=== PATIENT | female | born 1955 | race Caucasian/White ===

== ENCOUNTER 2017-06-10 10:17 | Inpatient (IN) | payer MEDICAID ==
[~2017-06-10] VITALS: Ht 152.4 cm; Wt 56.5 kg
[2017-06-10] VITALS (16 sets, daily range): BP systolic 71–113; BP diastolic 32–75
[~2017-06-10 10:17] MED LIST: ESTR1TAB19 PO; HYDR-569 PO; ROPI2TAB29 PO; thiamine inj. 100 MG in normal saline 100ml IV soln 99 ML IV SCH; thiamine inj. 100 MG, magnesium sulf injection 2 GM, MVI, adult No.4 with vit. K 10 ML ... IV SCH
[2017-06-10 11:04] LABS: BASOPHILS % (AUTO) 0 % (0-1); EOSINOPHILS % (AUTO) 0.1 % (0-6); LYMPHOCYTES # (AUTO) 1.6 X10'3 (1.1-4.8); LYMPHOCYTES % (AUTO) 7.7 % (21-51); MEAN CORPUSCULAR HEMOGLOBIN 28.4 PG (27.0-31.0); MEAN CORPUSCULAR VOLUME 91.6 FL (78-98); MEAN PLATELET VOLUME 8.6 FL (7.4-10.4); MONOCYTES # (AUTO) 0.2 X10'3 (0-0.9); MONOCYTES % (AUTO) 0.8 % (2-12); NEUTROPHILS # (AUTO) 18.9 X10'3 (1.8-7.7); NEUTROPHILS % (AUTO) 91.4 % (42-75); PLATELET COUNT 149 X10'3 (140-440); RED BLOOD COUNT 1.92 X10'6 (4.20-5.60); RED CELL DISTRIBUTION WIDTH 19.9 % (11.5-14.5); WHITE BLOOD COUNT 20.6 X10'3 (4.5-11.0)
[2017-06-10 11:09] LABS: HEMATOCRIT 17.6 % (35.0-45.0); HEMOGLOBIN 5.4 g/dl (12.0-16.0); INR 2.3 INR; PARTIAL THROMBOPLASTIN TIME 38 SECONDS (22-32); PROTHROMBIN TIME 23.3 SECONDS (9.0-12.0)
[2017-06-10 11:14] LABS: ALANINE AMINOTRANSFERASE 92 U/L (12-78); ALBUMIN 1.9 G/DL (3.4-5.0); ALKALINE PHOSPHATASE 341 IU/L (46-116); ANION GAP 22 (8-16); ASPARTATE AMINO TRANSFERASE 388 U/L (10-37); BILIRUBIN,TOTAL 4.1 MG/DL (0.1-1.0); BLOOD UREA NITROGEN 18 MG/DL (7-18); BUN/CREATININE RATIO 15.5 (6.6-38.0); CHLORIDE 101 MMOL/L (99-107); CREATININE 1.16 MG/DL (0.40-0.90); GLUCOSE 95 MG/DL (70-104); POTASSIUM 3.8 MMOL/L (3.5-5.1); SODIUM 140 MMOL/L (135-145); TOTAL CARBON DIOXIDE 17.2 MMOL/L (24-32); eGFR 48 ML/MIN
[2017-06-10 11:16] LABS: ALBUMIN/GLOBULIN RATIO 0.5 (1.1-1.5); TOTAL PROTEIN 6.1 G/DL (6.4-8.2)
[2017-06-10] MEDS ORDERED: normal saline 1000ml 1,000 ML IV ONE (11:22)
[2017-06-10] MEDS ORDERED: normal saline 1000ML IV soln IVB ONE (11:25)
[2017-06-10 11:45] LABS: CLARITY,URINE CLEAR (Clear); COLOR,URINE YELLOW (Yellow); GLUCOSE, URINE NEGATIVE (Neg); KETONES,URINE TRACE mg/dl (Neg); LEUKOCYTE ESTERASE ,URINE TRACE (Neg); NITRITES, URINE POSITIVE (Neg); OCCULT BLOOD,URINE NEGATIVE (Neg); PH,URINE 5.5 (4.8-8.0); PROTEIN,URINE TRACE mg/dl (Neg)
[2017-06-10 11:46] LABS: NUCLEATED RED BLOOD CELLS 2 /100WBC (0-0); TOTAL CELLS COUNTED 100
[2017-06-10 11:48] LABS: OCCULT BLOOD STOOL POSITIVE (Neg)
[2017-06-10 11:48] LABS: ANISOCYTOSIS 2+; MICROCYTOSIS 2+; PLATELET ESTIMATE NORMAL
[2017-06-10 11:49] LABS: HYPOCHROMASIA 2+
[2017-06-10 11:51] LABS: UA COLLECTION TYPE STRAIGHT CATH
[2017-06-10 11:56] LABS: BACTERIA,URINE 2+ /HPF (Neg); MUCUS STRANDS NONE SEEN /LPF (Neg); RBC,URINE NONE SEEN /HPF (0-2); SQUAMOUS EPITHELIAL CELL,UR FEW /LPF (FEW)
[2017-06-10 11:57] LABS: WBC CLUMPS,URINE FEW /HPF (NEGATIVE)
[2017-06-10 12:08] LABS: AMYLASE 120 U/L (25-115); LIPASE 88 U/L (73-393); MAGNESIUM 1.4 MG/DL (1.5-2.4)
[2017-06-10] MEDS ORDERED: magnesium hydroxide 30ml (MOM) UD suspension PO PRN (12:25)
[2017-06-10] MEDS ORDERED: sodium phosphate inj. 15 MMOL in dextrose 5%-water 150 ML IV PRN (12:25)
[2017-06-10] MEDS: normal saline 1000ml 1,000 ML IV SCH ×2 (12:25→18:22)
[2017-06-10] MEDS ORDERED: magnesium Cl slow-release 64mg tablet PO PRN (12:25)
[2017-06-10] MEDS ORDERED: potassium Cl 20 mEq SR tablet PO PRN ×2 (12:25)
[2017-06-10] MEDS ORDERED: acetaminophen 325mg tablet PO PRN ×2 (12:25)
[2017-06-10] MEDS ORDERED: magnesium 4gm in 100ml NS 100 ML IV PRN (12:25)
[2017-06-10] MEDS ORDERED: Neutra Phos packet PO PRN (12:25)
[2017-06-10] MEDS ORDERED: magnesium 2GM in 50ml NS 50 ML IV PRN (12:25)
[2017-06-10] MEDS ORDERED: sodium phosphate inj. 30 MMOL in dextrose 5%-water 250 ML IV PRN (12:25)
[2017-06-10] MEDS ORDERED: ondansetron/PF 4mg/2ml inj IV PRN (12:25)
[2017-06-10] MEDS ORDERED: morphine 4 MG/ML inj SYRINge IV ONE (13:45)
[2017-06-10 13:51] LABS: MEAN CORPUSCULAR HEMOGLOBIN 27.9 PG (27.0-31.0); MEAN CORPUSCULAR HGB CONC 30.5 % (33.0-36.5); MEAN CORPUSCULAR VOLUME 91.5 FL (78-98); MEAN PLATELET VOLUME 8.9 FL (7.4-10.4); PLATELET COUNT 97 X10'3 (140-440); RED BLOOD COUNT 1.54 X10'6 (4.20-5.60); RED CELL DISTRIBUTION WIDTH 19.7 % (11.5-14.5); WHITE BLOOD COUNT 12.4 X10'3 (4.5-11.0)
[2017-06-10 13:58] LABS: HEMATOCRIT 14.1 % (35.0-45.0)
[2017-06-10 13:59] LABS: HEMOGLOBIN 4.3 g/dl (12.0-16.0)
[2017-06-10] MEDS ORDERED: iohexol 300mg/ml 100ml inj. ONE (14:19)
[2017-06-10] MEDS ORDERED: furosemide 20 MG/2 ML vial IV ONE ×2 (15:25→21:40)
[2017-06-10] MEDS ORDERED: thiamine 100mg/ml 2ml inj. IM ONE (15:40)
[2017-06-10] MEDS: NORepinephrine 8mg/ 250ml NS 250 ML IV SCH (15:58)
[2017-06-10 16:00] LABS: ABG BASE EXCESS -9.8 mmol/L (-2.0-3.0); ABG HCO3 14.5 mmol/L (22.0-26.0); ABG OXYGEN SATURATION 82.5 % (95-98); ABG PCO2 (T) 22.7 mmHg (32.0-45.0); ABG PH (T) 7.413 (7.350-7.450); ABG PO2 (T) 45.8 mmHg (83-108); ALLEN'S TEST Positive; FCOHb 0.5 % (0.5-1.5); FLOW 6 L/min; FMetHb 0.5 % (0.3-1.12); FO2Hb 81.7 % (94-100); PATIENT TEMPERATURE 34.3; RESPIRATORY RATE (OBSERVED) 22 b/min; TOTAL HEMOGLOBIN 5.5 G/dl (12.0-16.0)
[2017-06-10] MEDS ORDERED: pantoprazole 40MG/NS 100ML BAG 100 ML IV SCH (16:00)
[2017-06-10] MEDS: K, MAG and/or Phos replacement - Verify level? MC SCH (16:00)
[2017-06-10] MEDS: pantoprazole 40MG/NS 100ML BAG 100 ML IV SCH ×2 (16:04→20:09)
[2017-06-10] MEDS ORDERED: fentaNYL/PF 50MCG/1 ML 2ML syringe ONE (16:58)
[2017-06-10] MEDS ORDERED: MIDAZolam 5mg/ml 2ml vial ONE (16:58)
[2017-06-10] MEDS ORDERED: LIDOcaine Viscous 15ml cup ONE (16:58)
[2017-06-10] MEDS: furosemide 20 MG/2 ML vial IV PRN ×2 (17:39→21:20)
[2017-06-10 17:47] LABS: ABG BASE EXCESS -8.4 mmol/L (-2.0-3.0); ABG HCO3 17.7 mmol/L (22.0-26.0); ABG OXYGEN SATURATION 95.5 % (95-98); ABG PCO2 (T) 36.2 mmHg (32.0-45.0); ABG PO2 (T) 81.7 mmHg (83-108); ALLEN'S TEST Positive; FCOHb 0.3 % (0.5-1.5); FLOW 50 L/min; FMetHb 0.3 % (0.3-1.12); FO2Hb 94.9 % (94-100); PATIENT TEMPERATURE 35.4; RESPIRATORY RATE (OBSERVED) 20 b/min; TOTAL HEMOGLOBIN 9.5 G/dl (12.0-16.0)
[2017-06-10 17:53] LABS: HEMOGLOBIN 8.9 g/dl (12.0-16.0); MEAN CORPUSCULAR HEMOGLOBIN 29.4 PG (27.0-31.0); MEAN CORPUSCULAR HGB CONC 32.8 % (33.0-36.5); MEAN CORPUSCULAR VOLUME 89.5 FL (78-98); MEAN PLATELET VOLUME 8.4 FL (7.4-10.4); PLATELET COUNT 131 X10'3 (140-440); RED BLOOD COUNT 3.02 X10'6 (4.20-5.60); RED CELL DISTRIBUTION WIDTH 16.9 % (11.5-14.5)
[2017-06-10] MEDS ORDERED: simethicone 40mg/0.6ml oral drops 30ml MC ONE (18:05)
[2017-06-10] MEDS ORDERED: fentaNYL/PF 50MCG/1 ML 2ML syringe IV PRN (18:05)
[2017-06-10] MEDS ORDERED: LIDOcaine Viscous 15ml cup PO ONE (18:05)
[2017-06-10] MEDS ORDERED: MIDAZolam 1mg/ml 10ml vial IV PRN (18:05)
[2017-06-10 20:00] LABS: HEMATOCRIT 27.9 % (35.0-45.0); HEMOGLOBIN 9.3 g/dl (12.0-16.0); MEAN CORPUSCULAR HEMOGLOBIN 29.5 PG (27.0-31.0); MEAN CORPUSCULAR HGB CONC 33.5 % (33.0-36.5); MEAN CORPUSCULAR VOLUME 88.1 FL (78-98); MEAN PLATELET VOLUME 8.4 FL (7.4-10.4); PLATELET COUNT 127 X10'3 (140-440); RED BLOOD COUNT 3.17 X10'6 (4.20-5.60); RED CELL DISTRIBUTION WIDTH 16.3 % (11.5-14.5); WHITE BLOOD COUNT 9.8 X10'3 (4.5-11.0)
[2017-06-10] MEDS ORDERED: calcium chloride inj. 1,000 MG in normal saline 100ml IV soln 90 ML IV ONE (20:40)
[2017-06-10] MEDS ORDERED: ROPINIRole 1mg tablet PO SCH (21:00)
[2017-06-10] MEDS ORDERED: estradiol 1mg tablet PO SCH (21:00)
[2017-06-10 23:36] LABS: ABG BASE EXCESS -3.2 mmol/L (-2.0-3.0); ABG HCO3 21.6 mmol/L (22.0-26.0); ABG OXYGEN SATURATION 94.2 % (95-98); ABG PCO2 (T) 35.9 mmHg (32.0-45.0); ABG PH (T) 7.393 (7.350-7.450); ALLEN'S TEST Positive; FCOHb 0.3 % (0.5-1.5); FMetHb 0.2 % (0.3-1.12); FO2Hb 93.7 % (94-100); TOTAL HEMOGLOBIN 9.7 G/dl (12.0-16.0)
[2017-06-11] VITALS (27 sets, daily range): BP systolic 26–96; BP diastolic 18–69
[2017-06-11] MEDS: pantoprazole 40MG/NS 100ML BAG 100 ML IV SCH ×3 (00:58→11:21)
[2017-06-11] MEDS: NORepinephrine 8mg/ 250ml NS 250 ML IV SCH ×4 (00:58→11:21)
[2017-06-11] MEDS ORDERED: LORazepam 2 mg/ml vial IV ONE (01:30)
[2017-06-11 02:33] LABS: HEMATOCRIT 27.3 % (35.0-45.0); HEMOGLOBIN 9.1 g/dl (12.0-16.0); MEAN CORPUSCULAR HEMOGLOBIN 29.5 PG (27.0-31.0); MEAN CORPUSCULAR HGB CONC 33.2 % (33.0-36.5); MEAN CORPUSCULAR VOLUME 88.9 FL (78-98); MEAN PLATELET VOLUME 8.6 FL (7.4-10.4); PLATELET COUNT 79 X10'3 (140-440); RED BLOOD COUNT 3.07 X10'6 (4.20-5.60); RED CELL DISTRIBUTION WIDTH 17.6 % (11.5-14.5)
[2017-06-11 02:44] LABS: INR 2.2 INR; PARTIAL THROMBOPLASTIN TIME 49 SECONDS (22-32); PROTHROMBIN TIME 21.7 SECONDS (9.0-12.0)
[2017-06-11 02:47] LABS: ALANINE AMINOTRANSFERASE 61 U/L (12-78); ALBUMIN 1.3 G/DL (3.4-5.0); ALBUMIN/GLOBULIN RATIO 0.4 (1.1-1.5); ALKALINE PHOSPHATASE 244 IU/L (46-116); ANION GAP 11 (8-16); ASPARTATE AMINO TRANSFERASE 272 U/L (10-37); BILIRUBIN,TOTAL 3.6 MG/DL (0.1-1.0); BLOOD UREA NITROGEN 18 MG/DL (7-18); BUN/CREATININE RATIO 18.2 (6.6-38.0); CALCIUM 7.9 MG/DL (8.5-10.1); CHLORIDE 108 MMOL/L (99-107); CREATININE 0.99 MG/DL (0.40-0.90); GLUCOSE 81 MG/DL (70-104); MAGNESIUM 2.6 MG/DL (1.5-2.4); PHOSPHORUS 2.2 MG/DL (2.3-4.5); POTASSIUM 3.3 MMOL/L (3.5-5.1); SODIUM 142 MMOL/L (135-145); TOTAL PROTEIN 4.4 G/DL (6.4-8.2); eGFR 57 ML/MIN
[2017-06-11] MEDS ORDERED: potassium Cl oral solution 20 MEQ/15 ML PO ONE (03:10)
[2017-06-11 03:11] LABS: WHITE BLOOD COUNT 0.9 X10'3 (4.5-11.0)
[2017-06-11 03:13] LABS: TOTAL CELLS COUNTED 25
[2017-06-11 03:14] LABS: ANISOCYTOSIS 2+; NUCLEATED RED BLOOD CELLS 17 /100WBC (0-0); PLATELET ESTIMATE DECREASED
[2017-06-11 03:15] LABS: ACANTHOCYTES 1+; BURR CELLS 1+; POIKILOCYTOSIS 2+; POLYCHROMASIA FEW; TARGET CELLS 2+
[2017-06-11] MEDS ORDERED: furosemide 20 MG/2 ML vial IV ONE (03:50)
[2017-06-11] MEDS ORDERED: levoFLOXACIN-Levaquin 750MG/D5 150 ML IV SCH (04:00)
[2017-06-11] MEDS ORDERED: albumin (Human) 5% 250ml 500 ML IV ONE (04:11)
[2017-06-11] MEDS ORDERED: albumin (Human) 5% 250 ML IV solution IV STA (04:12)
[2017-06-11 04:36] LABS: ABG BASE EXCESS -8.5 mmol/L (-2.0-3.0); ABG HCO3 17.7 mmol/L (22.0-26.0); ABG OXYGEN SATURATION 88.6 % (95-98); ABG PCO2 (T) 38.9 mmHg (32.0-45.0); ABG PH (T) 7.275 (7.350-7.450); ALLEN'S TEST Positive; FCOHb 0.3 % (0.5-1.5); FMetHb 0.4 % (0.3-1.12); MINUTE VOLUME 24 L/min; PATIENT TEMPERATURE 36.8; RESPIRATORY RATE 14 b/min; RESPIRATORY RATE (OBSERVED) 40 b/min; TOTAL HEMOGLOBIN 9.6 G/dl (12.0-16.0)
[2017-06-11] MEDS ORDERED: dextrose 50%-water 50ml dispensing syringe IV ONE ×2 (04:55→09:37)
[2017-06-11] MEDS ORDERED: normal saline 500ml IV soln 500 ML IV ONE (05:05)
[2017-06-11] MEDS ORDERED: vancomycin/NS 1 GM ADD-VANTAGE 250 ML IV ONE (05:05)
[2017-06-11 05:07] LABS: D-DIMER 5.13 MG/L FEU (0-0.50)
[2017-06-11] MEDS ORDERED: vasopressin inj. 60 UNIT in normal saline 100ml IV soln 97 ML IV SCH (05:50)
[2017-06-11] MEDS ORDERED: potassium Cl 20mEq/100mL bag 100 ML IV ONE (06:44)
[2017-06-11] MEDS ORDERED: potassium Cl 20mEq/100mL bag 100 ML IV PRN ×2 (07:00)
[2017-06-11] MEDS ORDERED: potassium phosphate inj 15 MMOL in dextrose 5%-water 150 ML IV PRN (07:10)
[2017-06-11] MEDS ORDERED: MIDAZolam 5mg/ml 2ml vial ONE (07:13)
[2017-06-11] MEDS ORDERED: midazolam 100mg in NS 100ml 100 ML IV PRN (07:14)
[2017-06-11] MEDS ORDERED: FENTANYL-0.9 % NACL/PF 100 ML IV PRN (07:14)
[2017-06-11] MEDS ORDERED: midazolam 2 mg/2 ml injection IV ONE (07:15)
[2017-06-11] MEDS ORDERED: ipratropium/albuterol 3ml nebule NEB PRN (07:15)
[2017-06-11] MEDS ORDERED: fentaNYL/PF 50MCG/1 ML 2ML syringe IV PRN (07:15)
[2017-06-11] MEDS ORDERED: MIDAZolam 5mg/ml 2ml vial IV ONE (07:15)
[2017-06-11] MEDS ORDERED: K and/or MAG REPLACEMENT MC SCH (08:00)
[2017-06-11] MEDS ORDERED: albumin (human) 25% 100 ML IV solution IV SCH (08:00)
[2017-06-11] MEDS ORDERED: piperacillin/tazo 3.375gm/50ml 50 ML IV SCH (08:00)
[2017-06-11] MEDS: K, MAG and/or Phos replacement - Verify level? MC SCH (08:00)
[2017-06-11 08:30] LABS: ABG BASE EXCESS -22.9 mmol/L (-2.0-3.0); ABG HCO3 10.8 mmol/L (22.0-26.0); ABG OXYGEN SATURATION 48.6 % (95-98); ABG PH (T) 6.833 (7.350-7.450); ABG PO2 (T) 38.9 mmHg (83-108); FMetHb 0.3 % (0.3-1.12); FO2Hb 48.5 % (94-100); PATIENT TEMPERATURE 36.1
[2017-06-11] MEDS ORDERED: sodium bicarbonate (8.4%) 1 mEq/ml syringe ONE (08:41)
[2017-06-11] MEDS ORDERED: sodium bicarbonate (8.4%) 1 mEq/ml syringe IV ONE ×3 (08:45→11:25)
[2017-06-11 08:55] LABS: HEMATOCRIT 26.1 % (35.0-45.0); HEMOGLOBIN 8.5 g/dl (12.0-16.0); MEAN CORPUSCULAR HEMOGLOBIN 29.5 PG (27.0-31.0); MEAN CORPUSCULAR HGB CONC 32.6 % (33.0-36.5); MEAN CORPUSCULAR VOLUME 90.7 FL (78-98); MEAN PLATELET VOLUME 8.9 FL (7.4-10.4); PLATELET COUNT 77 X10'3 (140-440); RED BLOOD COUNT 2.87 X10'6 (4.20-5.60)
[2017-06-11 09:16] LABS: ABG BASE EXCESS -18.4 mmol/L (-2.0-3.0); ABG HCO3 12.9 mmol/L (22.0-26.0); ABG OXYGEN SATURATION 62.9 % (95-98); ABG PCO2 (T) 56.2 mmHg (32.0-45.0); ABG PH (T) 6.972 (7.350-7.450); ABG PO2 (T) 43.7 mmHg (83-108); FCOHb 0.3 % (0.5-1.5); FMetHb 0.2 % (0.3-1.12); FO2Hb 62.6 % (94-100); PATIENT TEMPERATURE 35.9; PEEP 15 cm H2O; RESPIRATORY RATE 24 b/min; TIDAL VOLUME 350 mL; TOTAL HEMOGLOBIN 9.3 G/dl (12.0-16.0)
[2017-06-11 09:32] LABS: NUCLEATED RED BLOOD CELLS 106 /100WBC (0-0); TOTAL CELLS COUNTED 100
[2017-06-11 09:36] LABS: ANISOCYTOSIS 2+; BURR CELLS 1+; HYPOCHROMASIA 1+; LARGE PLATELETS FEW; PLATELET ESTIMATE DECREASED; POLYCHROMASIA 1+; TARGET CELLS 2+
[2017-06-11 09:37] LABS: SMUDGE CELLS FEW; WHITE BLOOD COUNT 2.1 X10'3 (4.5-11.0)
[2017-06-11] MEDS ORDERED: ipratropium/albuterol 3ml nebule NEB SCH (11:00)
[2017-06-11] MEDS ORDERED: sodium bicarbonate (8.4%) inj. 150 MEQ in dextrose 5%-water 1,000 ML IV SCH (11:00)
[2017-06-11 11:01] LABS: ABG BASE EXCESS -23.7 mmol/L (-2.0-3.0); ABG HCO3 10.3 mmol/L (22.0-26.0); ABG PCO2 (T) 70.6 mmHg (32.0-45.0); ABG PH (T) 6.775 (7.350-7.450); ABG PO2 (T) 58.2 mmHg (83-108); FCOHb 0.3 % (0.5-1.5); FMetHb 0.5 % (0.3-1.12); FO2Hb 69.4 % (94-100); PEEP 15 cm H2O; RESPIRATORY RATE 24 b/min; TIDAL VOLUME 350 mL; TOTAL HEMOGLOBIN 8.2 G/dl (12.0-16.0)
[2017-06-11 11:21] LABS: ABG BASE EXCESS -24.5 mmol/L (-2.0-3.0); ABG HCO3 9.6 mmol/L (22.0-26.0); ABG OXYGEN SATURATION 58.3 % (95-98); ABG PH (T) 6.718 (7.350-7.450); ABG PO2 (T) 51.9 mmHg (83-108); FCOHb 0.3 % (0.5-1.5); FMetHb 0.5 % (0.3-1.12); FO2Hb 57.8 % (94-100); PEEP 15 cm H2O; RESPIRATORY RATE 24 b/min; TIDAL VOLUME 350 mL; TOTAL HEMOGLOBIN 6.6 G/dl (12.0-16.0)
[2017-06-11 11:23] LABS: MEAN CORPUSCULAR HEMOGLOBIN 29.5 PG (27.0-31.0); MEAN CORPUSCULAR HGB CONC 31.8 % (33.0-36.5); MEAN CORPUSCULAR VOLUME 92.8 FL (78-98); MEAN PLATELET VOLUME 9.8 FL (7.4-10.4); RED BLOOD COUNT 1.97 X10'6 (4.20-5.60); RED CELL DISTRIBUTION WIDTH 18.8 % (11.5-14.5)
[2017-06-11 11:28] LABS: ALANINE AMINOTRANSFERASE 28 U/L (12-78); ALBUMIN 1.2 G/DL (3.4-5.0); ALBUMIN/GLOBULIN RATIO 0.7 (1.1-1.5); ALKALINE PHOSPHATASE 143 IU/L (46-116); ANION GAP 22 (8-16); ASPARTATE AMINO TRANSFERASE 170 U/L (10-37); BILIRUBIN,TOTAL 1.5 MG/DL (0.1-1.0); BLOOD UREA NITROGEN 16 MG/DL (7-18); BUN/CREATININE RATIO 12.4 (6.6-38.0); CALCIUM 6.3 MG/DL (8.5-10.1); CHLORIDE 116 MMOL/L (99-107); CREATININE 1.29 MG/DL (0.40-0.90); MAGNESIUM 2.3 MG/DL (1.5-2.4); PHOSPHORUS 5.4 MG/DL (2.3-4.5); POTASSIUM 5.5 MMOL/L (3.5-5.1); TOTAL CARBON DIOXIDE 17.2 MMOL/L (24-32); eGFR 42 ML/MIN
[2017-06-11 11:32] LABS: GLUCOSE 34 MG/DL (70-104); SODIUM 155 MMOL/L (135-145)
[2017-06-11 11:41] LABS: HEMATOCRIT 18.2 % (35.0-45.0); HEMOGLOBIN 5.8 g/dl (12.0-16.0); PLATELET COUNT 9 X10'3 (140-440)
[2017-06-11 11:46] LABS: ABG BASE EXCESS -16.9 mmol/L (-2.0-3.0); ABG HCO3 14.6 mmol/L (22.0-26.0); ABG OXYGEN SATURATION 63.7 % (95-98); ABG PCO2 (T) 74.7 mmHg (32.0-45.0); ABG PH (T) 6.902 (7.350-7.450); ABG PO2 (T) 49.8 mmHg (83-108); FCOHb 0.3 % (0.5-1.5); FMetHb 0.8 % (0.3-1.12); MINUTE VOLUME 10 L/min; PEEP 15 cm H2O; RESPIRATORY RATE 24 b/min
[2017-06-11 11:52] LABS: NUCLEATED RED BLOOD CELLS 100 /100WBC (0-0); TOTAL CELLS COUNTED 100
[2017-06-11 11:53] LABS: ANISOCYTOSIS 2+; PLATELET ESTIMATE DECREASED
[2017-06-11 11:54] LABS: BURR CELLS 2+; HYPOCHROMASIA 1+; POLYCHROMASIA 1+; SMUDGE CELLS 1+
[2017-06-11 11:55] LABS: TARGET CELLS 2+
[2017-06-11 11:56] LABS: WHITE BLOOD COUNT 1.6 X10'3 (4.5-11.0)
[2017-06-11] MEDS ORDERED: morphine 4 MG/ML inj SYRINge IV PRN (13:45)
[2017-06-11] MEDS ORDERED: hydrocortisone sod succ/PF 100mg/2ml inj. IV SCH (14:00)
[2017-06-12] MEDS ORDERED: vancomycin/NS 1 GM ADD-VANTAGE 250 ML IV SCH (05:00)
[2017-06-12] MEDS ORDERED: mineral oil/petrolatum ophthal oint EACHEYE SCH (08:00)
[2017-06-14] MEDS ORDERED: VANCOMYCIN LEVEL IV ONE (04:30)
== END 2017-06-11 15:44 | disposition expired | DRG 253 ==
LOC: ER 10:18 → ED HOLD 12:25 → CICU 2S 14:42
PROC: BW251ZZ Computerized Tomography (CT Scan) of Chest, Abdomen and Pelvis using Low Osmolar Contrast (ICD-10-PCS; principal; 2017-06-10)
PROC: 30233N1 Transfusion of Nonautologous Red Blood Cells into Peripheral Vein, Percutaneous Approach (ICD-10-PCS; 2017-06-10)
PROC: 5A09357 Assistance with Respiratory Ventilation, Less than 24 Consecutive Hours, Continuous Positive Airway Pressure (ICD-10-PCS; 2017-06-10)
PROC: 5A12012 Performance of Cardiac Output, Single, Manual (ICD-10-PCS; 2017-06-11)
PROC: 30233R1 Transfusion of Nonautologous Platelets into Peripheral Vein, Percutaneous Approach (ICD-10-PCS; 2017-06-11)
PROC: 0BH17EZ Insertion of Endotracheal Airway into Trachea, Via Natural or Artificial Opening (ICD-10-PCS; 2017-06-11)
PROC: 5A1935Z Respiratory Ventilation, Less than 24 Consecutive Hours (ICD-10-PCS; 2017-06-11)
PROC: 02HV33Z Insertion of Infusion Device into Superior Vena Cava, Percutaneous Approach (ICD-10-PCS; 2017-06-11)
PROC: B548ZZA Ultrasonography of Superior Vena Cava, Guidance (ICD-10-PCS; 2017-06-11)
DX: K92.2 Gastrointestinal hemorrhage, unspecified (principal); J96.01 Acute respiratory failure with hypoxia; I46.9 Cardiac arrest, cause unspecified; R57.9 Shock, unspecified; D61.818 Other pancytopenia; E87.4 Mixed disorder of acid-base balance; R18.8 Other ascites; D62 Acute posthemorrhagic anemia; E16.2 Hypoglycemia, unspecified; Z66 Do not resuscitate; Z87.891 Personal history of nicotine dependence; Z79.899 Other long term (current) drug therapy
CPT/HCPCS: 36415; 36556; 36600; 43239; 70450; 71045; 71260; 74177; 80053; 81001; 82140; 82150; 82272; 82330; 82803; 82810; 82947; 82948; 83605; 83690; 83735; 84100; 84145; 84484; 85018; 85025; 85027; 85379; 85384; 85610; 85730; 86885; 86900; 86901; 86920; 87040; 87070; 87077; 87088; 87186; 93005; 94002; 94660; 94760; 99291; A6213; C1751; C1758; C9113; G0500; J1940; J1956; J2060; J2250; J2270; J2543; J3010; J3370; J3411; J3475; J3480; J3490; J7030; J7060; P9016; P9035; P9045; P9047; Q9967